=== PATIENT | female | born 2005 | race Caucasian/White ===

== ENCOUNTER 2024-09-30 08:55 | Outpatient (CLI) | payer OTHER, SELFPAY | END 2024-09-30 08:56 | disposition home or self-care (01) | LOC: NFLDREF 10-03 08:00 | PROVIDERS: PCP Family Medicine; Referring Provider Family Medicine; Visit Provider Family Medicine | DX: Z11.1 Encounter for screening for respiratory tuberculosis (principal) | CPT/HCPCS: 86480 ==